=== PATIENT | female | born 1930 | race Caucasian/White ===

== ENCOUNTER 2018-02-13 12:09 | Emergency (ER) | payer MEDICARE, OTHER ==
[2018-02-13] MEDS ORDERED: ACETAMINOPHEN 325 MG TABLET PO ONE (12:24)
--- NOTE | 2018-02-13 12:26 | ER Document Report ---
ED Fall - General Chief Complaint: Back Injury Stated Complaint: FALL GENERAL WEAKNESS Time Seen by Provider: 02/13/18 12:13 Mode of Arrival: Stretcher Information source: Patient TRAVEL OUTSIDE OF THE [place] IN LAST 30 DAYS: No - HPI Patient complains to provider of: Mechanical fall Occurred: Just prior to arrival Where: Outdoors Associated symptoms: None Location of injury/pain: Neck Quality of pain: Achy Severity: Mild Pain Level: 1 Notes: Patient is an 87-year-old female who presents to the emergency room via emergency medicine staff as she had a fall on hospital property while having outpatient blood work done, patient states that she was on her way to the car using her rolling walker when the wheels impacted a bump in the curb causing her to lose balance and fall backwards, she denies any head injury or loss of consciousness, she states she did brace herself in her neck in an attempt to decrease the chances of hitting her head, so she does feel some strain in her neck, with a slight headache, she denies any pain or injury to her back, her buttock, her hip or her lower extremities, she does also feel a strain in her right shoulder, however has a history of bursitis and is scheduled to have an injection in that shoulder on Friday of next week, therefore contributes the pain in the right shoulder to that and states it is no worse than usual, she denies any chest pain or shortness of breath, no symptoms prior to the fall - Related data Allergies/Adverse Reactions: No Known Allergies Allergy (Unverified 11/26/10 04:17) Past Medical History - General Information source: Patient - Social History Smoking Status: Unknown if Ever Smoked Family History: Reviewed & Not Pertinent - Past Medical History Cardiac Medical History: Reports: Hx Hypertension Denies: Hx Heart Attack Pulmonary Medical History: Denies: Hx Asthma Neurological Medical History: Denies: Hx Cerebrovascular Accident, Hx Seizures GI Medical History: Denies: Hx Hepatitis, Hx Hiatal Hernia, Hx Ulcer Infectious Medical History: Denies: Hx Hepatitis Past Surgical History: Denies: Hx Mastectomy, Hx Open Heart Surgery, Hx Pacemaker - Immunizations Hx Pneumococcal Vaccination: 11/25/10 Review of Systems - Review of Systems Constitutional: No symptoms reported EENT: No symptoms reported Cardiovascular: No symptoms reported Respiratory: No symptoms reported Gastrointestinal: No symptoms reported Genitourinary: No symptoms reported Female Genitourinary: No symptoms reported Musculoskeletal: See HPI Skin: No symptoms reported Hematologic/Lymphatic: No symptoms reported Neurological/Psychological: See HPI -: Yes All other systems reviewed and negative Physical Exam - Vital signs Vitals: Temp Pulse Resp BP Pulse Ox 98.2 F 60 20 152/64 H 98 02/13/18 12:20 02/13/18 12:20 02/13/18 12:20 02/13/18 12:20 02/13/18 12:20 Interpretation: Normal - General General appearance: Appears well, Alert - HEENT Head: Normocephalic, Atraumatic Eyes: Normal Conjunctiva: Normal Extraocular movements intact: Yes Eyelashes: Normal Pupils: PERRL Neck: Other - Mild tenderness to palpate in the right cervical paraspinal musculature into the right trapezius muscle, no midline tenderness or step-off - Respiratory Respiratory status: No respiratory distress Chest status: Nontender Breath sounds: Normal Chest palpation: Normal - Cardiovascular Rhythm: Regular Heart sounds: Normal auscultation Murmur: No - Abdominal Inspection: Normal Distension: No distension Bowel sounds: Normal Tenderness: Nontender Organomegaly: No organomegaly - Back Back: Normal, Nontender - Extremities General upper extremity: Normal color, Normal temperature General lower extremity: Normal inspection, Nontender, Normal color, Normal ROM , Normal temperature, Normal weight bearing. No: Jesusita's sign Shoulder: Tender - Mild tenderness to palpate over the right proximal humerus laterally, mild pain with range of motion testing, distal sensation and motor is intact, no deformity, 2+ radial pulses - Neurological Neuro grossly intact: Yes Cognition: Normal Orientation: AAOx4 Jl Coma Scale Eye Opening: Spontaneous Jl Coma Scale Verbal: Oriented [place] Coma Scale Motor: Obeys Commands Jl Coma Scale Total: 15 Speech: Normal Motor strength normal: LUE, RUE, LLE, RLE Sensory: Normal - Psychological Associated symptoms: Normal affect, Normal mood - Skin Skin Temperature: Warm Skin Moisture: Dry Skin Color: Normal Course - Re-evaluation Re-evalutation: 02/13/18 12:36 Patient brought to the emergency room after having a fall in the parking lot while leaving the hospital after having outpatient blood work drawn, she denied any dizziness or generalized weakness, denies any pain except for a mild headache and mild neck muscle tension related to her bracing herself for the fall, she is able to move all extremities without difficulty, she is able to ambulate without difficulty, and does report that she feels as though her being brought to the emergency room was "completely unnecessary", she was given a dose of Tylenol and advised to follow-up with her primary care provider or return if symptoms worsen in any way, patient and caregiver at bedside acknowledge understanding and agreement with this plan - Vital Signs Vital signs: Temp Pulse Resp BP Pulse Ox 98.2 F 60 20 152/64 H 98 02/13/18 12:20 02/13/18 12:20 02/13/18 12:20 02/13/18 12:20 02/13/18 12:20 Discharge - Discharge Clinical Impression: Fall Qualifiers: Encounter type: initial encounter Qualified Code(s): W19.XXXA - Unspecified fall, initial encounter Cervical strain Qualifiers: Encounter type: initial encounter Qualified Code(s): S16.1XXA - Strain of muscle, fascia and tendon at neck level, initial encounter Condition: Stable Disposition: HOME, SELF-CARE Instructions: Ice Packs ([facility]), Muscle Strain ([facility]), Neck Injury (Cervical Strain) ([facility]) Additional Instructions: Follow up with your primary care provider in one to 2 days. Return to the emergency room immediately if symptoms worsen or any additional concerns. Referrals: ED PAGE MD [Primary Care Provider] - Follow up as needed
[2018-02-13 12:28] VITALS: BP 152/64
== END 2018-02-13 12:40 | disposition home or self-care (01) ==
LOC: ER 12:09
DX: S16.1XXA Strain of muscle, fascia and tendon at neck level, initial encounter (principal); R51 Headache; W19.XXXA Unspecified fall, initial encounter; Y93.89 Activity, other specified; Y92.481 Parking lot as the place of occurrence of the external cause; M75.51 Bursitis of right shoulder; M25.511 Pain in right shoulder; I10 Essential (primary) hypertension
CPT/HCPCS: 99283; A9270

== ENCOUNTER → 2018-02-13 | Outpatient (CLI) | payer MEDICARE, OTHER ==
[2018-02-13 12:18] LABS: ANION GAP 14 (5-19); BLOOD UREA NITROGEN 23 mg/dL (7-20); CALCIUM 9.4 mg/dL (8.4-10.2); CARBON DIOXIDE 26 mmol/L (22-30); CHLORIDE 105 mmol/L (98-107); GLUCOSE 110 mg/dL (75-110); POTASSIUM 4.2 mmol/L (3.6-5.0); SODIUM 144.9 mmol/L (137-145)
== END ==
LOC: LAB 11:37
PROVIDERS: ATTEND Internal Medicine Clinical Cardiac Electrophysiology
DX: I11.9 Hypertensive heart disease without heart failure (principal)
CPT/HCPCS: 36415; 80048